=== PATIENT | male | born 1975 | race Caucasian/White ===

== ENCOUNTER 2020-02-28 10:03 | Emergency (ER) | payer OTHER, SELFPAY ==
--- NOTE | 2020-02-28 10:12 | ED.BACK ---
HPI - Back Pain/Injury General Chief Complaint: Back Pain/Injury Stated Complaint: lower back pain Time Seen by Provider: 02/28/20 10:13 Source: patient and RN notes reviewed Mode of arrival: ambulatory Limitations: no limitations History of Present Illness HPI Narrative: 44-year-old male who presents to [facility] with complaints of low back pain after pushing a manhole cover into place yesterday afternoon at work. Patient has lower back pain with no radiation to his legs or buttocks since this incident, denies any pain along spinal column, denies any tingling or numbness to his lower extremities. Patient reports that he did have a massage this morning which seems of helped his discomfort some but has not completely relieved pain or feelings of spasms in his lower back. Patient denies any difficulty with urination or bowel movements denies any saddle paraesthesia. MD elicited complaint: back pain Pertinent past history: prior back pain and recent trauma Timing: constant Severity: moderate Pain scale (0-10): 4 Quality: aching Location: right lower back and left lower back Radiation: none Exacerbating factors: movement Treatments prior to arrival: acetaminophen Work related injury: Yes Related Data Home Medications Medication Instructions Recorded Confirmed mesalamine 1.2 gram tablet,delayed tablet PO DAILY 06/05/19 06/05/19 release Allergies Allergy/AdvReac Type Severity Reaction Status Date / Time codeine AdvReac Intermediate n, v Verified 06/05/19 10:11 Review of Systems Review of Systems: Narrative: CONSTITUTIONAL: Denies fever, chills, or sweats. EYES: Denies visual changes, redness, or discharge. ENT: Denies rhinorrhea, congestion, sore throat, or otalgia. CARDIOVASCULAR: Denies chest pain, palpitations, or edema. RESPIRATORY: Denies cough or dyspnea. GASTROINTESTINAL: Denies abdominal pain, nausea, vomiting, or diarrhea. GENITOURINARY: Denies dysuria or hematuria. SKIN: Denies rash or itching. MUSCULOSKELETAL: positive lower back pain,no joint pain, or myalgia, denies any tingling or numbness to his lower extremities. NEUROLOGIC: Denies headache, numbness, or weakness. PSYCHIATRIC: Denies anxiety or depression. All systems reviewed & are unremarkable except as noted in HPI and below PMFSH Past Medical History Medical History (Updated 02/28/20 @ 10:38 by Edilia Cho NP) Ulcerative colitis Surgical History Surgical History (Updated 02/28/20 @ 10:52 by Edilia Cho NP) No history of previous surgery Family History Family History (Updated 02/28/20 @ 10:52 by Edilia Cho NP) Grandparent Diabetes mellitus Social History Social History (Updated 02/28/20 @ 10:53 by Edilia Cho NP) Smoking status: Never smoker Alcohol intake: current Alcohol use details: social but rare Substance use: never Living arrangements: with family Gender identity (if verbalized by the patient): Male Comments At time of signature, agree with nursing past medical, surgical, social and family history. There is no relevant family history pertinent to the presenting complaint Exam Narrative: Exam Narrative: GENERAL: Well-appearing, well-nourished, and in no acute distress. HEAD: Normocephalic, atraumatic. EYES: PERRLA and EOMI. ENT: Nares clear, no rhinorrhea or epistaxis. Mucous membranes moist. NECK: Supple.no lymphadenopathy CHEST: Clear to auscultation. No respiratory distress. HEART: Regular rate and rhythm. No murmur heard. Normal peripheral pulses. ABDOMEN: Soft, nontender, nondistended, normal active bowel sounds. EXTREMITIES: Painful back flexion and moves slowly, denies any radiation of pain to his legs or buttocks, patient denies any tingling or numbness to his lower extremities, pedal and posterior pulses strong, feet warm and color pink. Patient denies any difficulty with urination or bowels, denies any saddle paraesthesia, No edema to lower extremities. Pain along SI join
[2020-02-28 10:16] VITALS: BP 121/83; PULSE 73; RESP 20; TEMP 37.4; O2SAT 100
== END 2020-02-28 10:43 | disposition home or self-care (01) ==
PROVIDERS: Emergency Provider Registered Nurse; PCP Internal Medicine
DX: M62.830 Muscle spasm of back (principal); S39.012A Strain of muscle, fascia and tendon of lower back, initial encounter; X50.0XXA Overexertion from strenuous movement or load, initial encounter; Y99.0 Civilian activity done for income or pay
CPT/HCPCS: 99213; G0463